=== PATIENT | female | born 2005 | race Caucasian/White ===

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

== ENCOUNTER 2025-02-02 21:11 | Emergency (ER) | payer OTHER ==
[~2025-02-02] VITALS: Ht 160 cm; Wt 59.9 kg
[2025-02-02] MEDS ORDERED: AMOX-CLAV 875-1 EACH PO (23:17)
[2025-02-02] MEDS ORDERED: Amoxicillin/Clavulanate Pota 875 MG TAB PO ONE (23:20)
== END 2025-02-02 23:29 | disposition home or self-care (01) ==
LOC: ED 21:11
DX: B34.9 Viral infection, unspecified (principal); H66.93 Otitis media, unspecified, bilateral; Z20.822 Contact with and (suspected) exposure to COVID-19

== ENCOUNTER → 2025-06-04 | Outpatient (CLI) | payer OTHER ==
[~2025-06-04] MED LIST changes: +AMOX-CLAV 875-1 EACH PO
== END | disposition home or self-care (01) ==
LOC: LAB 16:58
PROVIDERS: ATTEND Nurse Practitioner Women's Health
DX: N76.0 Acute vaginitis (principal)

== ENCOUNTER 2025-07-23 15:09 | Emergency (ER) | payer OTHER ==
[~2025-07-23] VITALS: Ht 160 cm; Wt 59.0 kg
[2025-07-23] MEDS ORDERED: NYST SUSP PO (16:51)
== END 2025-07-23 16:57 | disposition home or self-care (01) ==
LOC: ED 15:09
DX: O98.811 Other maternal infectious and parasitic diseases complicating pregnancy, first trimester (principal); B37.0 Candidal stomatitis; Z3A.01 Less than 8 weeks gestation of pregnancy